=== PATIENT | female | born 1960 | race Caucasian/White ===

== ENCOUNTER 2019-04-09 12:26 | Inpatient (IN) | payer MEDICAID ==
[~2019-04-09] VITALS: Ht 167.6 cm; Wt 64.4 kg
[2019-04-09] VITALS (7 sets, daily range): BP systolic 153–185; BP diastolic 89–112; BMI 22.9
[2019-04-09 13:08] LABS: HEMATOCRIT 38.8 % (36.0-48.0); HEMOGLOBIN 13.1 g/dL (12-16); LYMPHOCYTES 24.8 % (15-50); MCH 31.6 pg (26.0-34.0); MCHC 33.8 g/dL (31.0-37.0); MCV 93.7 fL (80.0-100.0); MEAN PLATELET VOLUME 11.5 fL (7.4-10.4); NEUTROPHILS 70.3 % (40-80); PLATELET COUNT 184 10x3/uL (130-400); RBC 4.14 10x6/uL (4.00-5.40); RDW 15.4 % (11.5-14.5); WBC 9.7 10x3/uL (4.8-10.8)
[2019-04-09 13:18] LABS: ALKALINE PHOSPHATASE 106 U/L (46-116); ALT (SGPT) 46 U/L (10-68); BILIRUBIN - TOTAL 0.83 mg/dL (0.2-1.3); CALC OSMOLALITY 287 mosm/kg (275-300); CALCIUM 8.4 mg/dL (8.5-10.1); CARBON DIOXIDE 28.3 mmol/L (21.0-32.0); CHLORIDE - SERUM 105 mmol/L (98-107); CREATININE - SERUM 1.1 mg/dL (0.6-1.3); GLUCOSE 95 mg/dL (74-106); POTASSIUM - SERUM 3.6 mmol/L (3.5-5.1); PROTEIN - SERUM 6.6 g/dL (6.4-8.2); SODIUM 143 mmol/L (136-145); UREA NITROGEN 20 mg/dL (7-18); eGFR NON AFRICAN AMERICAN 54 mL/min (90-120)
[2019-04-09 13:30] LABS: CKMB 2.3 U/L (0.0-3.6); CREATINE KINASE 75 UL (21-215); PRO BNP 16407 pg/mL (0-125); TROPONIN-I 0.021 ng/mL (0.000-0.060)
[2019-04-09] MEDS ORDERED: ALBUTEROL SULF8.5 GM INH (15:24)
[2019-04-09 17:23] LABS: CKMB 2.4 U/L (0.0-3.6); CREATINE KINASE 70 UL (21-215); TROPONIN-I 0.024 ng/mL (0.000-0.060)
[2019-04-09 17:45] LABS: APTT 29.2 SECONDS (22.8-39.4); INR 1.15 (0.85-1.17); PROTIME 14.2 SECONDS (11.6-15.0)
--- NOTE | 2019-04-09 17:59 | NUR ---
NICOTEIN PATCH PLACED ON L UPPER ARM
--- NOTE | 2019-04-09 18:00 | NUR ---
[facility] STOP TIME 1800
--- NOTE | 2019-04-09 18:59 | MORECARE ---
CASE MANAGEMENT DISCHARGE SUMMARY PATIENT: GERMAIN ONTIVEROS UNIT: [id number] ADM DATE: 04/09/19 AGE: 59 : 64 SEX: F ROOM/BED: D.1209 AUTHOR: ERVIN SANCHEZ PHYSICIAN: REFERRING PHYSICIAN: MAVERICK JULIAN MD DATE OF SERVICE: 04/09/19 Discharge Plan Patient Name: GERMAIN ONTIVEROS Facility: [facility]:[place] : 1960 Planned Disposition: Home Anticipated Discharge Date: 04/11/19 Discharge Date: Expected LOS: 2 Initial Reviewer: [email or web address] Initial Review Date: 04/09/2019 Generated: 04/09/19 7:59 pm DCP- Discharge Planning Updated by [email or web address]: Stephanie Carbajal on 04/09/19 5:[address] DC PLAN: Return home alone independently. ANTICIPATED DC NEEDS: Unknown needs at time of assessment. CM met with patient to complete initial dc planning assessment. CM educated patient on the CM role and verbal consent given by patient to complete assessment. CM verified patient's address, phone number, and emergency contact phone numbers. Patient lives at home alone independently. At discharge patient plans to return home and feels this is a safe discharge. CM discussed availability of home health, rehab services, and medical equipment. Patient denied known discharge needs at this time. CM will continue to follow and will assist as needed with dc plans/needs. Stephanie Carbajal RN, [facility] DCPIA - Discharge Planning Initial Assessment Updated by [email or web address]: Stephanie Carbajal on 04/09/19 6:53 pm * Is the patient Alert and Oriented? Yes * PCP No PCP * Pharmacy [facility] * Preadmission Environment Home Alone * ADLs Independent * Equipment None * List name and contact numbers for known caregivers / representatives who currently or will assist patient after discharge: Liam Lynn - granddaughter - [phone] * Verbal permission to speak to the caregivers and representatives has been obtained from the patient. Yes * Community resources currently utilized None * Additional services required to return to the preadmission environment? No * Can the patient safely return to the preadmission environment? Yes * Has this patient been hospitalized within the prior 30 days at any hospital? No Patient Name: GERMAIN ONTIVEROS Page [phone] at 1859 All edits/amendments must be made on the electronic document DICTATION DATE: 04/09/191857 CERTIFIED HEARING INSTRUMENT DISPENSER: JAY 04/09/191857 RPT#: [id number] DC DATE: STATUS: ADM IN [facility] [address] [place] [address] END OF REPORT
--- NOTE | 2019-04-09 19:39 | NUR ---
REC'D PATIENT FROM ER. NO S/S OF DISTRESS. BROUGHT PATIENT A DRINK PER HER REQUEST AND ORDERS. PATIENT DENIES OTHER NEEDS AT THIS TIME. BED IN LOWEST POSITION AND CALL LIGHT WITHIN REACH. ENCOURAGED THE PATIENT TO CALL IF SHE HAS NEEDS. WILL CONTINUE TO MONITOR.
[2019-04-09 23:01] LABS: CKMB 1.6 U/L (0.0-3.6); CREATINE KINASE 61 UL (21-215); TROPONIN-I 0.036 ng/mL (0.000-0.060)
[2019-04-10] VITALS (7 sets, daily range): BP systolic 118–148; BP diastolic 62–86; BMI 22.9
[2019-04-10 00:12] LABS: APPEARANCE CLEAR (CLEAR); BILIRUBIN NEGATIVE (NEGATIVE); COLOR YELLOW (YELLOW); GLUCOSE NEGATIVE (NEGATIVE); KETONE NEGATIVE (NEGATIVE); NITRITE NEGATIVE (NEGATIVE); PROTEIN NEGATIVE (NEGATIVE); UROBILINOGEN NORMAL (NORMAL)
[2019-04-10 00:15] LABS: EPITHELIAL CELLS 0-5 /hpf (0-5); RED CELLS - URINE 0-5 /hpf (0-5); WHITE CELLS - URINE 0-5 /hpf (NEGATIVE)
[2019-04-10 00:16] LABS: BACTERIA NONE SEEN /hpf (NEGATIVE)
--- NOTE | 2019-04-10 07:10 | NUR ---
REPORT RECEIVED FROM PARTS CLASSIFIER AND PATIENT CARE ASSUMED. PATIENT SITTING UP IN BED WATCHING TV. PATIENT IS STABLE AND VSS. PATIENT DENIES ANY NEEDS OR PAIN. WILL CONTINUE WITH PLAN OF CARE. SR UP X 2 BED IN LOW POSITION AND CALL LIGHT IN REACH.
[2019-04-10 07:17] LABS: BASOPHILS 0.1 % (0-2); EOSINOPHILS 2.2 % (0-7); HEMATOCRIT 39.4 % (36.0-48.0); IMMATURE GRANULOCYTES 0.2 % (0-5); LYMPHOCYTES 25.4 % (15-50); MCH 30.6 pg (26.0-34.0); MCV 92.7 fL (80.0-100.0); MEAN PLATELET VOLUME 12.1 fL (7.4-10.4); MONOCYTES 4.8 % (2-11); NEUTROPHILS 67.3 % (40-80); PLATELET COUNT 216 10x3/uL (130-400); RBC 4.25 10x6/uL (4.00-5.40); RDW 15.2 % (11.5-14.5); WBC 8.8 10x3/uL (4.8-10.8)
[2019-04-10 07:42] LABS: ALKALINE PHOSPHATASE 97 U/L (46-116); ALT (SGPT) 38 U/L (10-68); BILIRUBIN - TOTAL 0.86 mg/dL (0.2-1.3); CALC OSMOLALITY 286 mosm/kg (275-300); CALCIUM 8.8 mg/dL (8.5-10.1); CARBON DIOXIDE 31.2 mmol/L (21.0-32.0); CHLORIDE - SERUM 104 mmol/L (98-107); CKMB 1.4 U/L (0.0-3.6); CREATINE KINASE 50 UL (21-215); CREATININE - SERUM 1.1 mg/dL (0.6-1.3); GLUCOSE 89 mg/dL (74-106); MAGNESIUM - SERUM 1.8 mg/dL (1.8-2.4); PROTEIN - SERUM 6.4 g/dL (6.4-8.2); SODIUM 144 mmol/L (136-145); TROPONIN-I 0.044 ng/mL (0.000-0.060); UREA NITROGEN 16 mg/dL (7-18); eGFR NON AFRICAN AMERICAN 54 mL/min (90-120)
--- NOTE | 2019-04-10 10:44 | NUR ---
PATIENT SITTING UP IN BED TALKING ON TELEPHONE. PATIENT IS STABLE AND VSS. PATIENT DENIES ANY NEEDS OR PAIN. PATIENT UP TO SHOWER. WILL CONTINUE WITH PLAN OF CARE. SR UP X 2 BED IN LOW POSITION AND CALL LIGHT IN REACH.
--- NOTE | 2019-04-10 10:47 | NUR ---
DR GABRIELA ARMSTRONG.
--- NOTE | 2019-04-10 16:29 | NUR ---
PATIENT RESTING COMFORTABLY TALKING ON CELL PHONE. PATIENT DENIES ANY NEEDS OR PAIN. PATIENT IS STABLE AND VSS. WILL CONTINUE TO MONITOR. SR UP X 2 BED IN LOW POSITION AND CALL LIGHT IN REACH.
--- NOTE | 2019-04-10 23:01 | NUR ---
EVENING ROUNDS COMPLETED. VSS, AAOX3, NO S/S OF DISTRESS. FAMILY AT BEDSIDE. PT STATES SHE IS FEELING A LOT BETTER THIS EVENING. DENIES ANY FURTHER NEEDS FOR COMFORT CARE. WILL CTM.
[2019-04-11 04:18] VITALS: BP 157/91
--- NOTE | 2019-04-11 04:35 | NUR ---
PT PIV INFILTRATED. RESITED ANOTHER PIV ON LFA 22G X1 STICK. PT TOLERATE WELL. LASIX GIVEN AT THIS TIME. PT DENIES ANY FURTHER NEEDS AT THIS TIME, WILL CPOC.
[2019-04-11 06:52] LABS: BASOPHILS 0 % (0-2); EOSINOPHILS 3.4 % (0-7); HEMOGLOBIN 13.3 g/dL (12-16); IMMATURE GRANULOCYTES 0.1 % (0-5); LYMPHOCYTES 26.8 % (15-50); MCH 30.7 pg (26.0-34.0); MCHC 32.4 g/dL (31.0-37.0); MEAN PLATELET VOLUME 12.3 fL (7.4-10.4); MONOCYTES 8.1 % (2-11); NEUTROPHILS 61.6 % (40-80); PLATELET COUNT 245 10x3/uL (130-400); RBC 4.33 10x6/uL (4.00-5.40); RDW 15.4 % (11.5-14.5); WBC 9.8 10x3/uL (4.8-10.8)
[2019-04-11 07:03] LABS: MCV 94.7 fL (80.0-100.0)
[2019-04-11 07:12] LABS: ALBUMIN 3.3 g/dL (3.4-5.0); ANION GAP 11.8 mmol/L (8-16); BILIRUBIN - TOTAL 0.62 mg/dL (0.2-1.3); CALCIUM 8.9 mg/dL (8.5-10.1); CARBON DIOXIDE 30.7 mmol/L (21.0-32.0); MAGNESIUM - SERUM 1.9 mg/dL (1.8-2.4); POTASSIUM - SERUM 3.5 mmol/L (3.5-5.1); PROTEIN - SERUM 7.1 g/dL (6.4-8.2)
--- NOTE | 2019-04-11 08:30 | NUR ---
PATIENT RECEIVED LYING IN BED. DENIES ANY PAIN OR NEEDS. AWAKE, ALERT, AND ORIENTED X 3. IV LEFT FA 22G SALINE LOCKED AND PATENT. TELEMETRY SR AT 77/MIN. SIDERAILS UP X 2. BED LOW AND LOCKED. WILL CONTINUE TO MONITOR.
[2019-04-11 10:47] LABS: CKMB 1.1 U/L (0.0-3.6); CREATINE KINASE 41 UL (21-215)
[2019-04-11 16:21] LABS: CKMB 1.1 U/L (0.0-3.6); CREATINE KINASE 45 UL (21-215)
[2019-04-11 16:43] LABS: TROPONIN-I < 0.017 ng/mL (0.000-0.060)
[2019-04-11 19:58] VITALS: BP 152/77
--- NOTE | 2019-04-11 20:00 | NUR ---
PT SITTING UP IN BED. CL IN REACH. WANTING TO GO TO VENDING MACHINE. THIS NURSE OKAYD FOR PT TO WALK DOWN TO VENDING MACHINE. DENIES NEEDS. RESP EVEN AND UNLABORED. A/O X4. LUNGS CLEAR. BOWEL ACTIVE X4. WCTM
[2019-04-11 22:20] LABS: CKMB 0.7 U/L (0.0-3.6); CREATINE KINASE 48 UL (21-215); TROPONIN-I < 0.017 ng/mL (0.000-0.060)
--- NOTE | 2019-04-11 23:00 | NUR ---
PT RECIEVED SHOWER.
[2019-04-11 23:52] VITALS: BP 138/68
--- NOTE | 2019-04-12 00:30 | NUR ---
PT RESTING QUIETLY. CL IN REACH. NO DISTRESS NOTED. WCTM
[2019-04-12 04:00] VITALS: BP 142/82
--- NOTE | 2019-04-12 04:17 | NUR ---
I have reviewed this patient and I concur with the Shift Assessment completed by the Licensed Practical Nurse today this shift.
[2019-04-12 05:53] LABS: BASOPHILS 0 % (0-2); EOSINOPHILS 4.8 % (0-7); HEMATOCRIT 40.6 % (36.0-48.0); IMMATURE GRANULOCYTES 0.2 % (0-5); LYMPHOCYTES 24.1 % (15-50); MCH 30.9 pg (26.0-34.0); MCV 96.4 fL (80.0-100.0); MEAN PLATELET VOLUME 11.7 fL (7.4-10.4); MONOCYTES 7.8 % (2-11); NEUTROPHILS 63.1 % (40-80); PLATELET COUNT 228 10x3/uL (130-400); RBC 4.21 10x6/uL (4.00-5.40); RDW 15.6 % (11.5-14.5); WBC 8.1 10x3/uL (4.8-10.8)
[2019-04-12 06:20] LABS: ALBUMIN 2.9 g/dL (3.4-5.0); BILIRUBIN - TOTAL 0.55 mg/dL (0.2-1.3); CALCIUM 8.8 mg/dL (8.5-10.1); CARBON DIOXIDE 33.2 mmol/L (21.0-32.0); CREATININE - SERUM 1.2 mg/dL (0.6-1.3); MAGNESIUM - SERUM 2.1 mg/dL (1.8-2.4); PROTEIN - SERUM 6.6 g/dL (6.4-8.2)
[2019-04-12 06:21] LABS: ANION GAP 8.9 mmol/L (8-16); POTASSIUM - SERUM 4.1 mmol/L (3.5-5.1)
--- NOTE | 2019-04-12 07:15 | NUR ---
PT RESTING IN BED, SHIFT ASSESSMENT PERFORMED. DENIES ANY NEEDS AT THIS TIME. WILL CONT TO FOLLOW POC
[2019-04-12 08:00] VITALS: BP 138/66
[2019-04-12 11:46] VITALS: Ht 167.6 cm; Wt 64.4 kg
--- NOTE | 2019-04-12 12:20 | NUR ---
PT RESTING IN BED EATING LUNCH. DENIES ANY NEEDS AT THIS TIME, WILL CONT TO FOLLOW POC
[2019-04-12] MEDS ORDERED: LEVAQUIN750 MG PO (12:32)
[2019-04-12] MEDS ORDERED: CARDIZEM LA300 MG PO (12:32)
--- NOTE | 2019-04-12 13:05 | NUR ---
NUTRITION F//U CHART REVIEWED, PT VISIT. GOOD INTAKE RECENT MEALS. PT STATES SHE IS "PROBABLY EATING TOO MUCH." WILL CONTINUE TO MONITOR PO INTAKE, PT PROGRESS. RD FOLLOWING
--- NOTE | 2019-04-12 16:00 | NUR ---
DISCHARGE INSTRUCTIONS REVIEWED WITH PT AND ALL QUESTIONS ANSWERED. PIV REMOVED WITH CATHETER TIP INTACT. TELEMETRY TAKEN TO MANAGER PRIMARY CARE, JAN. ASSISTED PT TO FRONT OF HOSPITAL.
--- NOTE | 2019-04-12 17:07 | MORECARE ---
CASE MANAGEMENT DISCHARGE SUMMARY PATIENT: GERMAIN ONTIVEROS UNIT: [id number] ADM DATE: 04/09/19 AGE: 59 : 64 SEX: F ROOM/BED: D.1209 AUTHOR: ERVIN SANCHEZ PHYSICIAN: REFERRING PHYSICIAN: MAVERICK JULIAN MD DATE OF SERVICE: 04/12/19 Discharge Plan Patient Name: GERMAIN ONTIVEROS Facility: [facility]:[place] : 1960 Planned Disposition: Home Anticipated Discharge Date: 04/11/19 Discharge Date: 04/12/2019 Expected LOS: 2 Initial Reviewer: [email or web address] Initial Review Date: 04/09/2019 Generated: 04/12/19 6:07 pm DCP- Discharge Planning Updated by [email or web address]: Stephanie Carbajal on 04/09/19 5:[address] DC PLAN: Return home alone independently. ANTICIPATED DC NEEDS: Unknown needs at time of assessment. CM met with patient to complete initial dc planning assessment. CM educated patient on the CM role and verbal consent given by patient to complete assessment. CM verified patient's address, phone number, and emergency contact phone numbers. Patient lives at home alone independently. At discharge patient plans to return home and feels this is a safe discharge. CM discussed availability of home health, rehab services, and medical equipment. Patient denied known discharge needs at this time. CM will continue to follow and will assist as needed with dc plans/needs. Stephanie Carbajal RN, [facility] DCPIA - Discharge Planning Initial Assessment Updated by [email or web address]: Stephanie Carbajal on 04/09/19 6:53 pm * Is the patient Alert and Oriented? Yes * PCP No PCP * Pharmacy [facility] * Preadmission Environment Home Alone * ADLs Independent * Equipment None * List name and contact numbers for known caregivers / representatives who currently or will assist patient after discharge: Liam Lynn - granddaughter - [phone] * Verbal permission to speak to the caregivers and representatives has been obtained from the patient. Yes * Community resources currently utilized None * Additional services required to return to the preadmission environment? No * Can the patient safely return to the preadmission environment? Yes * Has this patient been hospitalized within the prior 30 days at any hospital? No Last DP export: 04/09/19 5:59 Patient Name: GERMAIN ONTIVEROS Page [phone] at 1707 All edits/amendments must be made on the electronic document DICTATION DATE: 04/12/191706 MACHINE CAPTAIN: JAY 04/12/191706 RPT#: [id number] DC DATE:04/12/19 STATUS: DIS IN [facility] [address] [place] [address] END OF REPORT
--- NOTE | 2019-04-13 13:28 | EC ---
PATIENT:GERMAIN ONTIVEROS DATE OF SERVICE: 04/09/19 SEX: F MEDICAL RECORD: [id number] DATE OF : 64 [facility] AGE OF PATIENT: 59 ADMISSION DATE: 04/09/19 REFERRING PHYSICIAN: INTERPRETING PHYSICIAN: LIBRADO GUERRERO MD ECHOCARDIOGRAM REPORT ECHO CHARGES 4 ECHO COMPLETE Date: 04/10/19 CLINICAL DIAGNOSIS: CHF ECHOCARDIOGRAPHIC MEASUREMENTS (adult normal given) AC root (d.<3.7cm) 3.1 cm LV Septum d (<1.2 cm> 1.6 cm Valve Excursion 1.3 cm LV Septum (systole) 1.4 cm Left Atria (s.<4.0cm> 4.8 cm LVPW d(<1.2cm) 1.5 cm RV (d.<2.3cm) 4.1 cm LVPW (sytole) 1.8 cm LV diastole(<5.6CM) 4.9 cm MV E-F(>70mm/sec) cm LV systole 3.5 cm LVOT Diameter 1.6 cm MV exc.(>10mm) 1.3 cm Est.ejection fraction (50-75%) % DOPPLER: LVIT cm/sec A 78.0 cm/sec E 108 cm/sec LA cm/sec RVSP 51 mmHg LVOT 132 cm/sec AOP1/2T m/s Asc. Ao 194 cm/sec RVOT 89 cm/sec RA cm/sec PA 163 cm/sec AV Gradient Peak 15.05mmHg AV Mean 8.42 mmHg AV Area 1.4 cm MV Gradient Peak 6.81 mmHg MV Mean 2.70 mmHg MV Area cm COMMENTS: Package Liner: Eloise MANTILLA Material Damage Adjuster: 1 Dr. Guerrero TAPE# PACS Pericardial Effusion N DATE OF SERVICE: FINDINGS: 1. Left ventricular chamber size is within normal limits. Left ventricular systolic function is normal. Overall ejection fraction estimated at 50%. 2. Left atrium is enlarged at 4.8 cm. Right atrium and right ventricular chamber sizes are as well mildly dilated. 3. Valvular structures have normal structure and motion. 4. Doppler interrogation reveals moderate mitral regurgitation, moderate tricuspid regurgitation, no other valvular insufficiency or stenosis. Pulmonary ECHOCARDIOGRAM REPORT [id number] GERMAIN ONTIVEROS systolic pressure is elevated estimated at 51 mmHg. 5. No evidence of pericardial effusion or left ventricular thrombus. TRANSINT:[id number] Voice Confirmation ID: [id number] DOCUMENT ID: [id number] LIBRADO GUERRERO MD at 1328 CC: [id number] DICTATION DATE: 04/10/19 1239 WAN SUPPORT SPECIALIST: 04/10/19 1253 DIS IN 04/12/19 [place] [id number] [place] [id number]
--- NOTE | 2019-04-13 13:29 | CN ---
PATIENT NAME:GERMAIN ONTIVEROS MEDICAL RECORD: [id number] : 64 LOCATION:D.M3 D.1209 ADMIT DATE: 04/09/19 ACCOUNT: [id number] CONSULTING PHYSICIAN: LIBRADO MANN MD REFERRING PHYSICIAN: MAVERICK JULIAN MD DATE OF CONSULTATION: 04/12/2019 DIAGNOSES: 1. Shortness of breath, dyspnea on exertion. 2. Pneumonia. 3. Pulmonary hypertension. 4. Valvular heart disease, mitral regurgitation. 5. Smoking. 6. Chronic obstructive pulmonary disease. 7. Abnormal ECG, left bundle branch block. HISTORY OF PRESENT ILLNESS: Mrs. Ontiveros has no previous cardiac history. She presents with shortness of breath, dyspnea on exertion. No chest pain. Cough is productive of sputum. She has been treated for the pneumonia and an echocardiogram was obtained. She has pulmonary hypertension, pulmonary systolic pressure 50 and mitral regurgitation that is moderate. She was placed on diltiazem 180 mg every day. Her systolic blood pressure still in the 140 range. PHYSICAL EXAMINATION: CONSTITUTIONAL/GENERAL APPEARANCE: Well nourished, well developed, appears stated age. EYES: Lids and conjunctivae noninjected. No discharge. No pallor. ENT: Lips within normal limit. No cyanosis. No pallor. NECK: Carotid arteries, bilateral normal upstroke. No bruits. No thrills. No jugular venous pressure or distention. CERVICAL LYMPH NODES: Nontender. Nonenlarged. THYROID: Not enlarged. No nodules. CARDIOVASCULAR: Precordial exam, nondisplaced. No heaves or pericardial thrills. Rate and rhythm, regular. Heart sounds, normal S1, normal S2. No S3, no gallop, no rub. Systolic murmur, not heard. Diastolic murmur, not heard. RESPIRATORY: Respiratory effort, unlabored. Normal curvature. No thoracic deformity. No chest wall tenderness. Percussion, resonant. Auscultation, clear. No wheezes, no rales, no rhonchi. ABDOMEN: Soft, nondistended, nontender. No abdominal pain, no vomiting and normal appetite. MUSCULOSKELETAL: No joint tenderness, normal gait, normal tone. SKIN: Warm and dry. OVERALL IMPRESSION: Pulmonary hypertension in conjunction with mitral regurgitation. At this time, afterload reduction will be the mainstay of therapy. We will increase her diltiazem to 300 mg every day. We will see her back in a month. If her blood pressure is still elevated, we will consider adding an PATRICIA inhibitor or ARB for further afterload reduction. TRANSINT:[id number] Voice Confirmation ID: [id number] DOCUMENT ID: [id number] CONSULT REPORT [id number] GERMAIN ONTIVEROS JEFFREY MD at 1329 CC: [id number] DICTATION DATE: 04/12/19 1149 AIRPORT OPERATIONS COORDINATOR: 04/12/19 1159 DIS IN 04/12/19 [place] [address] [place] [address]
== END 2019-04-12 16:36 | disposition home or self-care (01) | DRG 291 ==
LOC: D.ER 12:26 → D.M3 16:20
PROVIDERS: Emergency Medicine; ADMIT Family Medicine; ATTEND Family Medicine
DX: I11.0 Hypertensive heart disease with heart failure (principal); J18.9 Pneumonia, unspecified organism; I50.31 Acute diastolic (congestive) heart failure; J44.0 Chronic obstructive pulmonary disease with (acute) lower respiratory infection; F17.213 Nicotine dependence, cigarettes, with withdrawal; I16.9 Hypertensive crisis, unspecified; J20.9 Acute bronchitis, unspecified; I27.20 Pulmonary hypertension, unspecified; I34.0 Nonrheumatic mitral (valve) insufficiency; R94.30 Abnormal result of cardiovascular function study, unspecified

== ENCOUNTER 2019-04-23 01:00 | Inpatient (IN) | payer MEDICAID ==
[~2019-04-23] VITALS: Ht 167.6 cm; Wt 63.4 kg
[2019-04-23] VITALS (32 sets, daily range): BP systolic 95–195; BP diastolic 45–101; BMI 22.9
[~2019-04-23 01:00] MED LIST: ALBUTEROL SULF8.5 GM INH; CARDIZEM LA300 MG PO; LEVAQUIN750 MG PO
--- NOTE | 2019-04-23 01:08 | NUR ---
PT PLACED ON 6L O2 VIA NC. PT O2 SAT IN THE 70S ON RA AT ARRIVAL.
--- NOTE | 2019-04-23 01:15 | NUR ---
PT MOVED TO TRAUMA ROOM 2 D/T PT CONDITION. RT, RN, AND EDP JESSIE AT BEDSIDE.
[2019-04-23 01:33] LABS: BASOPHILS 0.1 % (0-2); EOSINOPHILS 3.5 % (0-7); HEMATOCRIT 41.6 % (36.0-48.0); HEMOGLOBIN 13.4 g/dL (12-16); IMMATURE GRANULOCYTES 0.3 % (0-5); LYMPHOCYTES 28.9 % (15-50); MCH 30.7 pg (26.0-34.0); MCHC 32.2 g/dL (31.0-37.0); MCV 95.4 fL (80.0-100.0); MEAN PLATELET VOLUME 11.3 fL (7.4-10.4); MONOCYTES 4.9 % (2-11); NEUTROPHILS 62.3 % (40-80); RBC 4.36 10x6/uL (4.00-5.40); RDW 14.7 % (11.5-14.5); WBC 13.6 10x3/uL (4.8-10.8)
[2019-04-23 01:34] LABS: PLATELET COUNT 287 10x3/uL (130-400)
[2019-04-23 01:49] LABS: CALC OSMOLALITY 287 mosm/kg (275-300); CALCIUM 8.5 mg/dL (8.5-10.1); CARBON DIOXIDE 24.7 mmol/L (21.0-32.0); CHLORIDE - SERUM 101 mmol/L (98-107); CREATININE - SERUM 1.6 mg/dL (0.6-1.3); SODIUM 137 mmol/L (136-145); UREA NITROGEN 25 mg/dL (7-18); eGFR NON AFRICAN AMERICAN 35 mL/min (90-120)
[2019-04-23 01:50] LABS: GLUCOSE 270 mg/dL (74-106)
[2019-04-23 01:52] LABS: APTT 27.6 SECONDS (22.8-39.4); INR 1.07 (0.85-1.17); PROTIME 13.4 SECONDS (11.6-15.0)
[2019-04-23 02:01] LABS: D-DIMER-QUANTITATIVE 3.57 ug/mLFEU (0.20-0.54)
[2019-04-23 02:12] LABS: ALBUMIN 3.2 g/dL (3.4-5.0); ALKALINE PHOSPHATASE 139 U/L (46-116); ALT (SGPT) 51 U/L (10-68); BILIRUBIN - TOTAL 0.41 mg/dL (0.2-1.3); CKMB 1.1 U/L (0.0-3.6); CREATINE KINASE 65 UL (21-215); PRO BNP 3379 pg/mL (0-125); PROTEIN - SERUM 7.8 g/dL (6.4-8.2)
[2019-04-23 02:13] LABS: TROPONIN-I < 0.017 ng/mL (0.000-0.060)
--- NOTE | 2019-04-23 03:00 | NUR ---
PT FAMILY AT BEDSIDE. FAMILY UPDATED ON POC. PT RESTING ON BED.
--- NOTE | 2019-04-23 04:35 | NUR ---
Received patient from ER via stretcher sedated on vent, assessment completed per flowsheet. ETT 7.5 @ 22cm secured. S1/S2 noted NSR on telemetry, rythmic and regular. Vent settings AC R-24 V-500 70% P-7.5 with O2 sat 100%, lung sounds clear bilateral upper with diminished mid and lower. Abdomen is flat/soft with bowel sounds active x4, non-tender. Weber secured, clear yellow urine noted. All pulses palpable with slight weakness noted all, skin warm/dry with cap refill < 3 sec. Oral care/suctioning provided, positioned for comfort. Unable to perform Suicide screen at this time, daughter at bedside for history. No further needs at this time, see flowsheet for details. All VSS and will continue to monitor.
--- NOTE | 2019-04-23 06:15 | NUR ---
Dr Guo paged to notify of consult, awaiting return call.
[2019-04-23 06:28] LABS: BASOPHILS 0 % (0-2); EOSINOPHILS 0.1 % (0-7); HEMATOCRIT 36.3 % (36.0-48.0); HEMOGLOBIN 11.7 g/dL (12-16); IMMATURE GRANULOCYTES 0.2 % (0-5); LYMPHOCYTES 5.2 % (15-50); MCH 30.5 pg (26.0-34.0); MCHC 32.2 g/dL (31.0-37.0); MCV 94.5 fL (80.0-100.0); MEAN PLATELET VOLUME 11.3 fL (7.4-10.4); MONOCYTES 3.4 % (2-11); NEUTROPHILS 91.1 % (40-80); RBC 3.84 10x6/uL (4.00-5.40); RDW 14.8 % (11.5-14.5); WBC 13.7 10x3/uL (4.8-10.8)
[2019-04-23 06:34] LABS: PLATELET COUNT 211 10x3/uL (130-400)
--- NOTE | 2019-04-23 07:18 | NUR ---
REPORT RECEIVED. ASSESSMENT COMPLETE PER FLOW SHEET. VSS. PT RESTING COMFORTABLY WILL CONTINUE TO MONITOR
[2019-04-23 08:08] LABS: CKMB 1.8 U/L (0.0-3.6); CREATINE KINASE 70 UL (21-215); TROPONIN-I 0.022 ng/mL (0.000-0.060)
--- NOTE | 2019-04-23 09:10 | NUR ---
DR CUNNINGHAM AND DR NOYOLA AT BEDSIDE GIVEN UPDATE
--- NOTE | 2019-04-23 11:00 | NUR ---
REASSESSMENT COMPLETE PER FLOW SHEET. VSS. NO NEW CHANGES PT RESTING COMFORTABLY WILL CONTINUE TO MONITOR
--- NOTE | 2019-04-23 12:07 | NUR ---
FAMILY CALLED GIVEN BETH
--- NOTE | 2019-04-23 12:16 | MORECARE ---
CASE MANAGEMENT DISCHARGE SUMMARY PATIENT: GERMAIN ONTIVEROS UNIT: [id number] ADM DATE: 04/23/19 AGE: 59 : 64 SEX: F ROOM/BED: D.2308 AUTHOR: ERVIN SANCHEZ PHYSICIAN: REFERRING PHYSICIAN: NATIVIDAD PIÑA DO DATE OF SERVICE: 04/23/19 Discharge Plan Patient Name: GERMAIN ONTIVEROS Facility: [facility]:[place] : 1960 Planned Disposition: Anticipated Discharge Date: Discharge Date: Expected LOS: Initial Reviewer: [email or web address] Initial Review Date: 04/23/2019 Generated: 04/23/19 1:16 pm Patient Name: GERMAIN ONTIVEROS Page [phone] at 1216 All edits/amendments must be made on the electronic document DICTATION DATE: 04/23/19 1216 QC SCIENTIST: JAY 04/23/19 1216 RPT#: [id number] DC DATE: STATUS: ADM IN [facility] [address] [place] [address] END OF REPORT
--- NOTE | 2019-04-23 12:26 | MORECARE ---
CASE MANAGEMENT DISCHARGE SUMMARY PATIENT: GERMAIN ONTIVEROS UNIT: [id number] ADM DATE: 04/23/19 AGE: 59 : 64 SEX: F ROOM/BED: D.2308 AUTHOR: ERVIN SANCHEZ PHYSICIAN: REFERRING PHYSICIAN: NATIVIDAD PIÑA DO DATE OF SERVICE: 04/23/19 Discharge Plan Patient Name: GERMAIN ONTIVEROS Facility: [facility]:[place] : 1960 Planned Disposition: Anticipated Discharge Date: Discharge Date: Expected LOS: Initial Reviewer: [email or web address] Initial Review Date: 04/23/2019 Generated: 04/23/19 1:26 pm Comments DCP- Discharge Planning Updated by [email or web address]: Colleen Bella on 04/23/19 11:[address] CM attempted to visit with patient regarding discharge planning/ needs. Patient currently on vent no family available. Patient is a readmission was recently discharged 04/12/19 CM will continue to follow and assist as needed with discharge planning / needs Last DP export: 04/23/19 11:16 Patient Name: GERMAIN ONTIVEROS Page [phone] at 1226 All edits/amendments must be made on the electronic document DICTATION DATE: 04/23/19 1225 SENIOR IT ARCHITECT: JAY 04/23/19 1225 RPT#: [id number] DC DATE: STATUS: ADM IN [facility] [address] [place] [address] END OF REPORT
[2019-04-23 12:42] LABS: CKMB 1.6 U/L (0.0-3.6); CREATINE KINASE 62 UL (21-215)
[2019-04-23 12:44] LABS: TROPONIN-I < 0.017 ng/mL (0.000-0.060)
--- NOTE | 2019-04-23 13:10 | NUR ---
FAMILY AT BEDSIDE GIVEN UDPATE. NO NEW CHANGES WILL CONTINUE TO MONITOR
--- NOTE | 2019-04-23 15:15 | NUR ---
REPOSITIONED FOR COMFORT, ORAL CARE PROVIDED
--- NOTE | 2019-04-23 17:10 | NUR ---
FAMILY AT BEDSIDE, UPDATE GIVEN, WILL CON'T TO MONITOR
[2019-04-23 20:09] LABS: CKMB 0.8 U/L (0.0-3.6); CREATINE KINASE 49 UL (21-215)
[2019-04-23 20:17] LABS: TROPONIN-I < 0.017 ng/mL (0.000-0.060)
[2019-04-24] VITALS (27 sets, daily range): BP systolic 126–178; BP diastolic 63–105; BMI 22.9
[2019-04-24 04:46] LABS: BASOPHILS 0 % (0-2); EOSINOPHILS 0 % (0-7); HEMOGLOBIN 11.8 g/dL (12-16); IMMATURE GRANULOCYTES 0.2 % (0-5); LYMPHOCYTES 5.2 % (15-50); MCH 30.2 pg (26.0-34.0); MCHC 32.8 g/dL (31.0-37.0); MEAN PLATELET VOLUME 11.6 fL (7.4-10.4); MONOCYTES 1.9 % (2-11); NEUTROPHILS 92.7 % (40-80); RBC 3.91 10x6/uL (4.00-5.40); RDW 14.9 % (11.5-14.5); WBC 15.1 10x3/uL (4.8-10.8)
[2019-04-24 05:00] LABS: MCV 92.1 fL (80.0-100.0); PLATELET COUNT 261 10x3/uL (130-400)
[2019-04-24 05:08] LABS: ANION GAP 13.3 mmol/L (8-16); CALCIUM 8.5 mg/dL (8.5-10.1); CARBON DIOXIDE 25.8 mmol/L (21.0-32.0); MAGNESIUM - SERUM 2.1 mg/dL (1.8-2.4); PHOSPHOROUS 4.3 mg/dL (2.5-4.9); POTASSIUM - SERUM 4.1 mmol/L (3.5-5.1)
--- NOTE | 2019-04-24 06:00 | NUR ---
VS STABLE. NO VISUAL CUES OF DISTRESS NOTED. WILL CONTINUE TO MONITOR.
--- NOTE | 2019-04-24 07:15 | NUR ---
REPORT RECIEVED FROM ECKLEY. ROOM CLEAN. HOB 30. SEDATED. NO PURPOSFUL MOVEMENTS. 75 MCG OF PROPOFOL. WILL BEGIN TO WEAN PER PROTOCOL. COTTRELL. VENT. NO ACUTE DISTRESS. PULSES PALP. PERRL. BREATH SOUNDS CRACKLES BILAT. BOWEL SOUNDS HYPO ACTIVE. NO FEEDING SUPPLEMENTAION AT THIS TIME. NO BM. CAP REFILL LESS THAN 3 SEC. WILL CONITNUE TO MONITOR.
--- NOTE | 2019-04-24 09:30 | NUR ---
CALLED DR CUNNINGHAM FOR APRESOLINE PRN.
--- NOTE | 2019-04-24 11:07 | NUR ---
DR NOYOLA AT BEDSIDE
--- NOTE | 2019-04-24 11:15 | NUR ---
patient had a low grade fever. ice packs applied. blankets off and air in room turned down.
--- NOTE | 2019-04-24 11:41 | EC ---
PATIENT:GERMAIN ONTIVEROS DATE OF SERVICE: 04/23/19 SEX: F MEDICAL RECORD: [id number] DATE OF : 64 LOCATION:[facility] AGE OF PATIENT: 59 ADMISSION DATE: 04/23/19 REFERRING PHYSICIAN: INTERPRETING PHYSICIAN: LIBRADO GUERRERO MD ECHOCARDIOGRAM REPORT ECHO CHARGES 5 ECHO LIMITED Date: 04/23/19 CLINICAL DIAGNOSIS: CHF/ASSESS EF ECHOCARDIOGRAPHIC MEASUREMENTS (adult normal given) AC root (d.<3.7cm) cm LV Septum d (<1.2 cm> cm Valve Excursion cm LV Septum (systole) cm Left Atria (s.<4.0cm> 5.5 cm LVPW d(<1.2cm) cm RV (d.<2.3cm) 4.4 cm LVPW (sytole) cm LV diastole(<5.6CM) cm MV E-F(>70mm/sec) cm LV systole cm LVOT Diameter cm MV exc.(>10mm) cm Est.ejection fraction (50-75%) % DOPPLER: LVIT cm/sec A cm/sec E cm/sec LA cm/sec RVSP 27 mmHg LVOT cm/sec AOP1/2T m/s Asc. Ao cm/sec RVOT cm/sec RA cm/sec PA cm/sec AV Gradient Peak mmHg AV Mean mmHg AV Area cm MV Gradient Peak mmHg MV Mean mmHg MV Area cm COMMENTS: Haulage Engine Operator: Eloise MANTILLA Excavation Laborer: Yair Guerrero TAPE# PACS Pericardial Effusion N DATE OF SERVICE: PROCEDURE: Limited echo. FINDINGS: 1. Left ventricular chamber size is within normal limits. Left ventricular systolic function is normal. Overall ejection fraction estimated at 55%. 2. Left atrium, right atrium, and right ventricular chamber sizes are within normal limits. 3. Valvular structures have normal structure and motion. ECHOCARDIOGRAM REPORT [id number] GERMAIN ONTIVEROS 4. Doppler interrogation reveals mild mitral regurgitation, mild tricuspid regurgitation, no other valvular insufficiency or stenosis. 5. No evidence of pericardial effusion or left ventricular thrombus. TRANSINT:[id number] Voice Confirmation ID: [id number] DOCUMENT ID: [id number] LIBRADO GUERRERO MD at 1141 CC: [id number] DICTATION DATE: 04/23/19 1117 HOMEBOUND TEACHER: 04/23/19 1203 ADM IN [facility] [address] [id number]
--- NOTE | 2019-04-24 13:43 | NUR ---
DR NOYOLA PAGED SINCE PATIENT IS AWAKE.
--- NOTE | 2019-04-24 14:19 | NUR ---
orders given per dr tripp.
--- NOTE | 2019-04-24 17:00 | NUR ---
0700 RECIEVED REPORT. COMPLETED ASSESSMENT. LOW GRADE FEVER 0900 ADL'S DONE. SEE DOCUMENTATION. BLOOD PRESURE MEDICATION ORDERED. 1100 LOW GRADE FEVER. ICEPACKS. REASSESSMENT DONE. PATIEN TURNED. SEE ADL'S. TUBE FEEDING STARTED @ 20CC. 1300 SEDATION VACATION. FAMILY AT BEDSIDE. PATIENT FOLLOWS COMMANDS. 1500 AFEBRILE. REASSESSMENT DONE. NO CHANGES FROM THIS MORNING. SEDATION VACATION ENDED 1700 FAMILY AT BEDSIDE. PATIENT SEDATED. ABLE TO NOD YES NO. ORAL CARE. SEE ADL'S. NO DISTRESS. NEGATIVE DVT PER REPORT. NO BM. LUNGS CRACKLE BUT BETTER AFTER SUCTIONING AND BREATHING TREATMENT.
--- NOTE | 2019-04-24 19:00 | NUR ---
SHIFT ASSESSMENT COMPLETE. VS STABLE. NO VISUAL CUES OF DISTRESS NOTED. WILL CONTINUE TO MONITOR.
[2019-04-25] VITALS (35 sets, daily range): BP systolic 98–164; BP diastolic 45–98; Ht 167.6 cm; Wt 63.4 kg
[2019-04-25 04:31] LABS: BASOPHILS 0.1 % (0-2); EOSINOPHILS 0 % (0-7); HEMATOCRIT 38.6 % (36.0-48.0); HEMOGLOBIN 12.7 g/dL (12-16); IMMATURE GRANULOCYTES 0.5 % (0-5); LYMPHOCYTES 5.4 % (15-50); MCH 30.6 pg (26.0-34.0); MCHC 32.9 g/dL (31.0-37.0); MEAN PLATELET VOLUME 11.6 fL (7.4-10.4); MONOCYTES 3.7 % (2-11); NEUTROPHILS 90.3 % (40-80); PLATELET COUNT 263 10x3/uL (130-400); RBC 4.15 10x6/uL (4.00-5.40); RDW 15.5 % (11.5-14.5)
[2019-04-25 04:40] LABS: WBC 19.1 10x3/uL (4.8-10.8)
[2019-04-25 05:00] LABS: ALKALINE PHOSPHATASE 91 U/L (46-116); ALT (SGPT) 34 U/L (10-68); BILIRUBIN - TOTAL 0.57 mg/dL (0.2-1.3); CALC OSMOLALITY 292 mosm/kg (275-300); CALCIUM 8.4 mg/dL (8.5-10.1); CARBON DIOXIDE 29.2 mmol/L (21.0-32.0); CHLORIDE - SERUM 106 mmol/L (98-107); GLUCOSE 121 mg/dL (74-106); MAGNESIUM - SERUM 2.3 mg/dL (1.8-2.4); POTASSIUM - SERUM 3.7 mmol/L (3.5-5.1); PROTEIN - SERUM 7.1 g/dL (6.4-8.2); SODIUM 143 mmol/L (136-145); UREA NITROGEN 32 mg/dL (7-18); VANCOMYCIN - TROUGH 8.5 ug/mL (10.0-20.0)
[2019-04-25 05:10] LABS: CREATININE - SERUM 0.6 mg/dL (0.6-1.3); PHOSPHOROUS 3.2 mg/dL (2.5-4.9); eGFR NON AFRICAN AMERICAN > 90 mL/min (90-120)
--- NOTE | 2019-04-25 07:00 | NUR ---
REPORT RECIEVED FROM RENEE MONIQUE. PROPFOL LINE CHANGED AT THIS TIME. NO DISTRESS. PATIENT FOLLOWS COMMANDS. SEDATED. VENT. BED LOW AND LOCKED. CALL LIGHT WITHIN REACH. VSS. SEE ASSESSMENT. SEE ADL'S. WILL CONTINUE TO MONITOR
--- NOTE | 2019-04-25 09:47 | NUR ---
family at bedside. update given.
--- NOTE | 2019-04-25 11:00 | NUR ---
REASSESSMENT DONE. NO CHANGES FROM INITIAL ASSESSMENT. WILL CONTINUE TO MONITOR. BED LOW AND LOCKED. CALL [facility] WITHIN REACH. NO DISTRESS. DR NOYOLA AT BEDSIDE. ORDRE GIVEN. UPDATE GIVEN. TUBE FEEDING. RESIDUAL 50ML. WILL CONTINUE TO MONITOR.
--- NOTE | 2019-04-25 12:48 | NUR ---
PAGED DR ALBERTS FOR CHG CONSULT PER DR NOYOLA. DR ALBERTS STATED HE DID NOT NEED TO BE CALLED BUT WOULD SEND SOMEONE ELSE TO COME SEE PATIENT. VIA [employer]ET SAYS HES WINDOWS SOFTWARE ENGINEER AND CALLED THE OFFICE BEFORE CALLING HIM AND THEY CONFIRMED DR ALBERTS WAS WINDOWS SOFTWARE ENGINEER.
[2019-04-25 13:10] LABS: EHRLICHIA CHAFF IGG Negative (Neg:<1:64); EHRLICHIA CHAFF IGM Negative (Neg:<1:20); HGE IGG TITER Negative (Neg:<1:64); HGE IGM TITER Negative (Neg:<1:20)
--- NOTE | 2019-04-25 13:16 | NUR ---
Nutrition follow-up: Intubated, CPAP trials today Pulmocare started @ 20 ml/hr with 10 ml increasae q 12 hours to goal rate of 40 ml/hr per Dr. Casarez if pt remains intubated. Labs reviewed Wt: 139# RDN following.
--- NOTE | 2019-04-25 13:19 | NUR ---
FAMILY AT BEDSIDE. BRONCH PERFORMED PER DR NOYOLA. VSS. HOB 30. SEE ADL'S. WILL CONTINUE TO MONITOR
--- NOTE | 2019-04-25 15:00 | NUR ---
REASSESSMENT COMPLETE, NO CHANGES NOTED, PT REPOSITIONED FOR COMFORT, ORAL CARE PROVIDED
--- NOTE | 2019-04-25 17:00 | NUR ---
FAMILY AT BEDSIDE, UPDATE GIVEN
--- NOTE | 2019-04-25 19:00 | NUR ---
CHANGED PT TO CPAP 03/31.
--- NOTE | 2019-04-25 19:00 | NUR ---
BEDSIDE REPORT AND SHIFT ASSESSMENT COMPLETE, SEE FLOWSHEET. VSS, NO SIGNS OF ACUTE DISTRESS NOTED. PT SEDATED, FOLLOWS COMMANDS. R HAND PIV AND L AC PIV, PATENT, DRESSING CDI. MATTHIAS, RT AT BEDSIDE TO START CPAP TRIAL, WILL START WEANING SEDATIVE PER PROTOCOL. WILL CONTINUE TO MONITOR.
--- NOTE | 2019-04-25 20:29 | MORECARE ---
CASE MANAGEMENT DISCHARGE SUMMARY PATIENT: GERMAIN ONTIVEROS UNIT: [id number] ADM DATE: 04/23/19 AGE: 59 : 64 SEX: F ROOM/BED: D.2308 AUTHOR: ERVIN SANCHEZ PHYSICIAN: REFERRING PHYSICIAN: NATIVIDAD PIÑA DO DATE OF SERVICE: 04/25/19 Discharge Plan Patient Name: GERMAIN ONTIVEROS Facility: [facility]:[place] : 1960 Planned Disposition: Anticipated Discharge Date: Discharge Date: Expected LOS: Initial Reviewer: [email or web address] Initial Review Date: 04/23/2019 Generated: 04/25/19 9:29 pm Comments DCP- Discharge Planning Updated by [email or web address]: Colleen Bella on 04/25/19 7:[address] CM spoke with [employer] today and patient is still Medicaid pending. Awaiting income verification. CM attempted to get discharge planning assessment but patient is still on vent. CM was able to obtain some contact numbers and will attempt to contact them. CM will continue to follow and assist as needed with discharge planning / needs DCP- Discharge Planning Updated by [email or web address]: Colleen Bella on 04/23/19 11:[address] CM attempted to visit with patient regarding discharge planning/ needs. Patient currently on vent no family available. Patient is a readmission was recently discharged 04/12/19 CM will continue to follow and assist as needed with discharge planning / needs Last DP export: 04/23/19 11:26 Patient Name: GERMAIN ONTIVEROS Page [phone] at 2028 All edits/amendments must be made on the electronic document DICTATION DATE: 04/25/192028 MEAT SUPERVISOR: JAY 04/25/192028 RPT#: [id number] DC DATE: STATUS: ADM IN [facility] [address] [place] [address] END OF REPORT
--- NOTE | 2019-04-25 21:00 | NUR ---
MEDS GIVEN PER AUG. FAMILY AT BEDSIDE. DAUGHTER IS GIVING HER A BATH AND WASHING HER HAIR. TUBE FEEDING BAG CHANGED, 5 ML RESIDUAL. CPAP TRIAL COMPLETE, SEDATION RESTARTED PER AUG. WILL CONTINUE TO MONITOR.
--- NOTE | 2019-04-25 21:03 | NUR ---
AFTER 2 HRS OF CPAP PT RSBI 38. HR 98 RR 17-22. PT VENT CHANGED BACK TO PREVIOUS VENT SETTINGS TO REST OVER NIGHT.
--- NOTE | 2019-04-25 23:00 | NUR ---
PT PULLED OUT R HAND PIV, PIV RESITED TO R FOREARM. MEDS GIVEN PER AUG. REASSESSMENT COMPLETE, SEE FLOWSHEET. VSS, NO SIGNS OF ACUTE DISTRESS NOTED. WILL MONITOR.
[2019-04-26] VITALS (24 sets, daily range): BP systolic 99–159; BP diastolic 55–89
--- NOTE | 2019-04-26 03:00 | NUR ---
REASSESSMENT COMPLETE, SEE FLOWSHEET. VSS, NO SIGNS OF ACUTE DISTRESS NOTED. MEDS GIVEN PER MAR. ORAL CARE COMPLETE. WILL CONTINUE TO MONITOR.
[2019-04-26 04:22] LABS: BASOPHILS 0 % (0-2); EOSINOPHILS 0 % (0-7); HEMATOCRIT 36.8 % (36.0-48.0); IMMATURE GRANULOCYTES 0.3 % (0-5); LYMPHOCYTES 7.6 % (15-50); MCH 30.8 pg (26.0-34.0); MCHC 32.6 g/dL (31.0-37.0); MCV 94.6 fL (80.0-100.0); MEAN PLATELET VOLUME 11.3 fL (7.4-10.4); MONOCYTES 2.5 % (2-11); NEUTROPHILS 89.6 % (40-80); PLATELET COUNT 248 10x3/uL (130-400); RBC 3.89 10x6/uL (4.00-5.40); RDW 15.9 % (11.5-14.5)
[2019-04-26 04:33] LABS: WBC 13.9 10x3/uL (4.8-10.8)
[2019-04-26 04:48] LABS: ALBUMIN 2.7 g/dL (3.4-5.0); ALKALINE PHOSPHATASE 79 U/L (46-116); ALT (SGPT) 35 U/L (10-68); BILIRUBIN - TOTAL 0.49 mg/dL (0.2-1.3); C-REACTIVE PROTEIN 0.6 mg/dL (0.0-0.9); CALC OSMOLALITY 297 mosm/kg (275-300); CALCIUM 7.9 mg/dL (8.5-10.1); CARBON DIOXIDE 33.6 mmol/L (21.0-32.0); CHLORIDE - SERUM 109 mmol/L (98-107); CREATININE - SERUM 0.6 mg/dL (0.6-1.3); GLUCOSE 133 mg/dL (74-106); MAGNESIUM - SERUM 2.3 mg/dL (1.8-2.4); PHOSPHOROUS 2.9 mg/dL (2.5-4.9); POTASSIUM - SERUM 3.6 mmol/L (3.5-5.1); PROTEIN - SERUM 6.3 g/dL (6.4-8.2); SODIUM 145 mmol/L (136-145); UREA NITROGEN 31 mg/dL (7-18); eGFR NON AFRICAN AMERICAN > 90 mL/min (90-120)
--- NOTE | 2019-04-26 05:00 | NUR ---
COTTRELL CARE PROVIDED. VSS, NO SIGNS OF ACUTE DISTRESS NOTED. MEDS GIVEN PER MAR.
--- NOTE | 2019-04-26 07:03 | NUR ---
REPORT RECEIVED. ASSESSMENT COMPLETE PER FLOW SHEET. VSS. NO NEW CHANGES PT RESTING COMFORTABLY WILL CONTINUE TO MONITOR
--- NOTE | 2019-04-26 09:20 | NUR ---
FAMILY AT BEDSIDE GIVEN UPDATE.
--- NOTE | 2019-04-26 11:10 | NUR ---
PT EXTUBATED AT THIS TIME. VSS. PT TOLERATING WELL. DENIES NEEDS WILLC ONTINEUT O MONITOR
--- NOTE | 2019-04-26 13:20 | NUR ---
SPEECH AT BEDSIDE GIVEN UPDATE. NEW ORDERS RECIEVEDX
--- NOTE | 2019-04-26 14:40 | MORECARE ---
CASE MANAGEMENT DISCHARGE SUMMARY PATIENT: GERMAIN ONTIVEROS UNIT: [id number] ADM DATE: 04/23/19 AGE: 59 : 64 SEX: F ROOM/BED: D.2306 AUTHOR: DANIEL,DOC PHYSICIAN: REFERRING PHYSICIAN: NATIVIDAD PIÑA DO DATE OF SERVICE: 04/26/19 Discharge Plan Patient Name: GERMAIN ONTIVEROS Facility: [facility]:[place] : 1960 Planned Disposition: Anticipated Discharge Date: Discharge Date: Expected LOS: Initial Reviewer: [email or web address] Initial Review Date: 04/26/2019 Generated: 04/26/19 3:40 pm Comments DCP- Discharge Planning Updated by [email or web address]: Colleen Bella on 04/25/19 7:[address] CM spoke with [employer] today and patient is still Medicaid pending. Awaiting income verification. CM attempted to get discharge planning assessment but patient is still on vent. CM was able to obtain some contact numbers and will attempt to contact them. CM will continue to follow and assist as needed with discharge planning / needs DCP- Discharge Planning Updated by [email or web address]: Colelen Bella on 04/23/19 11:[address] CM attempted to visit with patient regarding discharge planning/ needs. Patient currently on vent no family available. Patient is a readmission was recently discharged 04/12/19 CM will continue to follow and assist as needed with discharge planning / needs DCPIA - Discharge Planning Initial Assessment Updated by [email or web address]: Yaneth Small on 04/26/19 2:37 pm * Is the patient Alert and Oriented? Yes * PCP CAN'T REMEMBER THE NAME * Pharmacy [facility] * Preadmission Environment Home Alone * ADLs Independent * Equipment None * Other Equipment NONE * List name and contact numbers for known caregivers / representatives who currently or will assist patient after discharge: BREANA EATON [phone] * Please name any agencies selected above. NONE * Additional services required to return to the preadmission environment? No * Can the patient safely return to the preadmission environment? Yes * Has this patient been hospitalized within the prior 30 days at any hospital? Yes Last DP export: 04/25/19 7:29 Patient Name: GERMAIN ONTIVEROS Page [phone] at 1440 All edits/amendments must be made on the electronic document DICTATION DATE: 04/26/191439 CAR WHACKER: JAY 04/26/191439 RPT#: [id number] DC DATE: STATUS: ADM IN [facility] [address] [place] [address] END OF REPORT
--- NOTE | 2019-04-26 14:52 | MORECARE ---
CASE MANAGEMENT DISCHARGE SUMMARY PATIENT: GERMAIN ONTIVEROS UNIT: [id number] ADM DATE: 04/23/19 AGE: 59 : 64 SEX: F ROOM/BED: D.2308 AUTHOR: ERVIN SANCHEZ PHYSICIAN: REFERRING PHYSICIAN: NATIVIDAD PIÑA DO DATE OF SERVICE: 04/26/19 Discharge Plan Patient Name: GERMAIN ONTIVEROS Facility: [facility]:[place] : 1960 Planned Disposition: Anticipated Discharge Date: Discharge Date: Expected LOS: Initial Reviewer: [email or web address] Initial Review Date: 04/26/2019 Generated: 04/26/19 3:52 pm Comments DCP- Discharge Planning Updated by [id number]: Yaneth Small on 04/26/19 1:[address] Patient Name: GERMAIN ONTIVEROS Admission Status: ER Accout number: [id number] Admission Date: 04-23-2019 : 1960 Admission Diagnosis: Attending: NATIVIDAD PIÑA Current LOS: 3 Anticipated DC Date: Planned Disposition: Primary Insurance: MEDICAID [place] PENDING Discharge Planning Comments: PATIENT WAS JUST EXTUBATED TODAY. I MET WITH HER AND HER DAUGHTER BREANA ABOUT DC PLANNING/NEEDS. PATIENT WANTS TO DC TO HOME. I SPOKE WITH HER ABOUT HH REHAB AND EQUIPMENT. SHE DOES NOT WANT ANY SERVICES. SHE MAY NEED OXYGEN, SHE DOESN'T HAVE ANY EQUIPMENT AT HOME. SHE WANTS FOR US TO COME BACK AND TALK WITH HER ABOUT POSSIBLE HOME HEALTH CLOSER TO DC. CM WILL FOLLOW AND ASSIST. Collections Assistant: Yaneth Small DCP- Discharge Planning Updated by [email or web address]: Colleen Bella on 04/25/19 7:[address] CM spoke with [employer] today and patient is still Medicaid pending. Awaiting income verification. CM attempted to get discharge planning assessment but patient is still on vent. CM was able to obtain some contact numbers and will attempt to contact them. CM will continue to follow and assist as needed with discharge planning / needs DCP- Discharge Planning Updated by [email or web address]: Colleen Bella on 04/23/19 11:[address] CM attempted to visit with patient regarding discharge planning/ needs. Patient currently on vent no family available. Patient is a readmission was recently discharged 04/12/19 CM will continue to follow and assist as needed with discharge planning / needs DCPIA - Discharge Planning Initial Assessment Updated by [email or web address]: Yaneth Small on 04/26/19 2:37 pm * Is the patient Alert and Oriented? Yes * PCP CAN'T REMEMBER THE NAME * Pharmacy [facility] * Preadmission Environment Home Alone * ADLs Independent * Equipment None * Other Equipment NONE * List name and contact numbers for known caregivers / representatives who currently or will assist patient after discharge: BREANA EATON [phone] * Please name any agencies selected above. NONE * Additional services required to return to the preadmission environment? No * Can the patient safely return to the preadmission environment? Yes * Has this patient been hospitalized within the prior 30 days at any hospital? Yes Last DP export: 04/26/19 1:40 Patient Name: GERMAIN ONTIVEROS Page 22455 at 1452 All edits/amendments must be made on the electronic document DICTATION DATE: 04/26/191451 CHEMISTRY PROFESSOR: JAY 04/26/19 145 RPT#: [id number] DC DATE: STATUS: ADM IN [facility] [address] [place] [address] END OF REPORT
--- NOTE | 2019-04-26 15:00 | NUR ---
REASSESSMENT COMPLETE PER FLOW SHEET. VSS. NO NEW CHANGES PT RESTING COMFORTABLY WILL CONTINUE TO MONITOR
[2019-04-26 17:08] LABS: F. TULARENSIS - IGG Negative (Negative); F. TULARENSIS - IGM Negative (Negative); RMSF IGM 0.64 index (0.00-0.89)
[2019-04-26 17:08] LABS: ACID FAST SMEAR Negative (()); AFB SPECIMEN PROCESSING Concentration (())
--- NOTE | 2019-04-26 17:47 | NUR ---
FAMILY AT BEDSIDE GIVEN UDPATE.
--- NOTE | 2019-04-26 21:00 | NUR ---
PT UP IN BED EATING DINNER TRAY, NO SIGNS OF ASPIRATION OBSERVED.
--- NOTE | 2019-04-26 23:00 | NUR ---
PT RESTING IN BED, NO ACUTE DISTRESS NOTED.
[2019-04-27] VITALS (25 sets, daily range): BP systolic 87–211; BP diastolic 45–104
--- NOTE | 2019-04-27 00:57 | NUR ---
REPORT RECEIVED, PT UP IN BED, AAOX4. ASSESSMENT COMPLETED, SEE FLOWSHEET. NO ACUTE DISTRESS NOTED. LT AC PIV TO SL, RT HAND PIV INFUSING, SEE FLOWSHEET. COTTRELL IN PLACE, NO ACUTE DISTRESS NOTED. WILL CONTINUE TO MONITOR.
--- NOTE | 2019-04-27 01:00 | NUR ---
PT RESTING IN BED, NO ACUTE DSITRESS NOTED. WILL CONTINUE TO MONITOR.
--- NOTE | 2019-04-27 03:00 | NUR ---
PT UP IN BED, NO ACUTE DISTRESS NOTED.
--- NOTE | 2019-04-27 05:00 | NUR ---
PT RESTING IN BED, NO ACUTE DISTRESS NOTED. COMPLETE BATH GIVEN. WILL CONTINUE TO MONITOR.
[2019-04-27 05:54] LABS: BASOPHILS 0.1 % (0-2); EOSINOPHILS 1.3 % (0-7); HEMATOCRIT 39.1 % (36.0-48.0); HEMOGLOBIN 12.5 g/dL (12-16); IMMATURE GRANULOCYTES 0.2 % (0-5); LYMPHOCYTES 21.7 % (15-50); MCH 30.5 pg (26.0-34.0); MCV 95.4 fL (80.0-100.0); MEAN PLATELET VOLUME 11.6 fL (7.4-10.4); MONOCYTES 5.2 % (2-11); NEUTROPHILS 71.5 % (40-80); PLATELET COUNT 245 10x3/uL (130-400); RDW 15.5 % (11.5-14.5); WBC 10.8 10x3/uL (4.8-10.8)
[2019-04-27 06:26] LABS: ALBUMIN 2.8 g/dL (3.4-5.0); ALKALINE PHOSPHATASE 74 U/L (46-116); BILIRUBIN - TOTAL 0.38 mg/dL (0.2-1.3); C-REACTIVE PROTEIN 0.3 mg/dL (0.0-0.9); CALC OSMOLALITY 295 mosm/kg (275-300); CALCIUM 8.2 mg/dL (8.5-10.1); CARBON DIOXIDE 33.3 mmol/L (21.0-32.0); CHLORIDE - SERUM 109 mmol/L (98-107); CREATININE - SERUM 0.6 mg/dL (0.6-1.3); GLUCOSE 102 mg/dL (74-106); POTASSIUM - SERUM 3.7 mmol/L (3.5-5.1); PROTEIN - SERUM 6.5 g/dL (6.4-8.2); SODIUM 146 mmol/L (136-145); UREA NITROGEN 26 mg/dL (7-18); VANCOMYCIN - TROUGH 13.4 ug/mL (10.0-20.0); eGFR NON AFRICAN AMERICAN > 90 mL/min (90-120)
[2019-04-27 06:27] LABS: ALT (SGPT) 52 U/L (10-68)
--- NOTE | 2019-04-27 08:29 | NUR ---
0700 AWAKE ALERT VOICES NO C/O PAIN UP TO BEDSIDE COMODE WITHOUT ASSIST. LARGE SOFT BM NOTED
--- NOTE | 2019-04-27 11:27 | NUR ---
Nutrition follow-up: Pt extubated 04/26 Swallow eval ordered; diet advanced to regular mechanical soft, ground meat and nectar thick liquids Labs reviewed Wt: 135# RDN following.
--- NOTE | 2019-04-27 12:02 | NUR ---
1100 DR PIÑA ROUNDING ON PATIENT WITH REG DIET ORDERED
--- NOTE | 2019-04-27 14:28 | NUR ---
1300 FRIENDS AND FAMILY MEMBERS AT BEDSIDE BRINGING ICE CDREAM AND TAKEOUT LUNCH APPETITE FAIR DENIES PAIN
[2019-04-27 15:09] LABS: FUNGUS STAIN Final report (())
--- NOTE | 2019-04-27 17:42 | NUR ---
1500 SITTING UP ON BEDSIDE WATCHING TV. DENIES PAIN
--- NOTE | 2019-04-27 17:43 | NUR ---
1700 EATING DINNER. FAMILY MEMBERS AT BEDSIDE APPETITE GOOD
--- NOTE | 2019-04-27 19:30 | NUR ---
REPORT RECEIVED. INITIAL ASSESSMENT COMPLETE PT ALERT ORIENTED X 4. DENIES PAIN OR DISCOMFORT. RESP EVEN NONLABORED ON ROOM AIR O2 SAT 98% CHEST SOUNDS CLEAR. CM READING SR ALARMS ON AND AUDIBLE NO ECTOPY NOTED. BED LOW POSITION CL IN REACH PT DENIES NEEDS AT THIS TIME
--- NOTE | 2019-04-27 20:10 | NUR ---
FAMILY AT BEDSIDE FOR VISITATION
--- NOTE | 2019-04-27 20:25 | NUR ---
BED ALARM SOUNDING INTO CHECK ON PATIENT FAMILY ASSISTING TO BSC. ENCOURAGED PT TO CALL FOR NURSE TO ASSIST WITH LINES AND TUBES TO GET UP SAFELY PT VERBALIZES UNDERSTADING
--- NOTE | 2019-04-27 21:00 | NUR ---
BACK TO BED STILL VISITING WITH FAMILY.
--- NOTE | 2019-04-27 23:00 | NUR ---
REASSESSMENT MADE NO CHANGES. PT STILL AWAKE DENIES NEEDS AT THIS TIME. SHE IS READY TO GET ROOM ON THE FLOOR SO SHE CAN GET A SHOWER. CPOC CL IN REACH WILL CONTINUE TO MONITOR
[2019-04-28] VITALS (14 sets, daily range): BP systolic 93–144; BP diastolic 54–83
--- NOTE | 2019-04-28 01:00 | NUR ---
PT RESTING QUIETLY WITH EYES CLOSED VSS AT THIS TIME CPOC
--- NOTE | 2019-04-28 02:45 | NUR ---
RETANNER HERE FOR AM LAB DRAW NO DISTRESS NOTED PT DENIES NEEDS VSS CPOC
--- NOTE | 2019-04-28 03:00 | NUR ---
REASSESSMENT MADE NO CHANGES PT 0315 DOSE OF B/P MED HELD PT HAS BEEN HYPOTENSIVE SBP 90-110'S. WILL CONTINUE TO MONITOR
[2019-04-28 03:14] LABS: BASOPHILS 0 % (0-2); EOSINOPHILS 8.1 % (0-7); HEMOGLOBIN 11.6 g/dL (12-16); IMMATURE GRANULOCYTES 0.3 % (0-5); LYMPHOCYTES 34.3 % (15-50); MCH 30.4 pg (26.0-34.0); MCHC 31.4 g/dL (31.0-37.0); MCV 97.1 fL (80.0-100.0); MEAN PLATELET VOLUME 11.6 fL (7.4-10.4); MONOCYTES 6.8 % (2-11); NEUTROPHILS 50.5 % (40-80); PLATELET COUNT 228 10x3/uL (130-400); RBC 3.81 10x6/uL (4.00-5.40); RDW 15.2 % (11.5-14.5); WBC 11.7 10x3/uL (4.8-10.8)
[2019-04-28 03:44] LABS: ALBUMIN 2.4 g/dL (3.4-5.0); ALKALINE PHOSPHATASE 70 U/L (46-116); ALT (SGPT) 53 U/L (10-68); BILIRUBIN - TOTAL 0.29 mg/dL (0.2-1.3); CALC OSMOLALITY 289 mosm/kg (275-300); CALCIUM 7.8 mg/dL (8.5-10.1); CARBON DIOXIDE 31.2 mmol/L (21.0-32.0); CHLORIDE - SERUM 106 mmol/L (98-107); CREATININE - SERUM 0.5 mg/dL (0.6-1.3); GLUCOSE 95 mg/dL (74-106); POTASSIUM - SERUM 3.4 mmol/L (3.5-5.1); PROTEIN - SERUM 5.8 g/dL (6.4-8.2); SODIUM 142 mmol/L (136-145); UREA NITROGEN 31 mg/dL (7-18); eGFR NON AFRICAN AMERICAN > 90 mL/min (90-120)
--- NOTE | 2019-04-28 05:00 | NUR ---
PT RESTING QUIETLY WITH EYES CLOSED VSS CPOC ROOM AIR SATS 99% PT DENIES NEEDS AT THIS TIME
[2019-04-28 08:10] LABS: IMMUNOGLOBULIN A 356 mg/dL (87-352); IMMUNOGLOBULIN G 716 mg/dL (700-1600)
--- NOTE | 2019-04-28 10:24 | NUR ---
PT OOB TO CHAIR. AMB FULL LENGTH OF DEPT. DR MEEKS AND DR CUNNINGHAM HERE ON ROUNDS. DCD FC. PT VOIDS IN BSC.
--- NOTE | 2019-04-28 11:08 | NUR ---
1045- PT EXTUBATED TO BIPAP PS 15 AND PEEP 10 FI02 50%. RESP EASY. SPO2 97%. RESTRAINTS OFF.
--- NOTE | 2019-04-28 15:52 | NUR ---
TRANSFER PT ASSISTED WITH SHOWER.
--- NOTE | 2019-04-28 16:40 | NUR ---
PT SITTING UP IN CHAIR. VSS.
--- NOTE | 2019-04-28 18:19 | NUR ---
NEW PATIENT ICU TRANSFER VIA WC ACCOMPANIED BY ICU STAFF. PATIENT IS AWAKE, ALERT AND ORIENTED X 4. PATIENT UP WALKING IN ROOM THEN TO BS CHAIR. PATIENT HAS IV TO LT AC SL AND RT WRIST. PATIENT IS STABLE AND VSS. PATIENT DENIES ANY NEEDS OR PAIN. WILL CONTINUE WITH PLAN OF CARE. ORIENTED PATIENT TO ROOM AND CALL LIGHT. CALL LIGHT IN REACH.
--- NOTE | 2019-04-28 19:48 | NUR ---
RECEIVED REPORT, WILL ASSUME CARE OF PT, SITTING IN CHAIR, DENIES ANY NEEDS, CALL LIGHT IN REACH, WILL CONTINUE PLAN OF CARE
[2019-04-29 04:00] VITALS: BP 115/60
--- NOTE | 2019-04-29 05:53 | NUR ---
I have reviewed this patient and I concur with the Shift Assessment completed by the Licensed Practical Nurse today this shift.
[2019-04-29 08:00] VITALS: BP 130/65
--- NOTE | 2019-04-29 08:10 | NUR ---
RECIEVED PT IN ROOM AFTER SHE WAS WALKING IN HALLS. PT HAD DISCONNECTED IV PRIOR. EDUCATED ON IMPORTANCE OF LETTING NURSES HANDLE IV MAINTENANCE AND ALSO FOR ANTIBIOTIC THERAPY. PT AGREEABLE. STATES HOPING TO GO HOME TODAY. NO COMPLAINTS AT PRESENT.
--- NOTE | 2019-04-29 10:13 | NUR ---
TALKED WITH BORIS CAMARENA RELATED TO PT REQUEST REGARDING BILLING AND MEDICAID. STATES SHE WILL TRY AND SEE PT AFTER LOOKING AT CHART.
[2019-04-29 12:00] VITALS: BP 129/64
--- NOTE | 2019-04-29 14:57 | MORECARE ---
CASE MANAGEMENT DISCHARGE SUMMARY PATIENT: GERMAIN ONTIVEROS UNIT: [id number] ADM DATE: 04/23/19 AGE: 59 : 64 SEX: F ROOM/BED: D.2131 AUTHOR: ERVIN SANCHEZ PHYSICIAN: REFERRING PHYSICIAN: NATIVIDAD PIÑA DO DATE OF SERVICE: 04/29/19 Discharge Plan Patient Name: GERMAIN ONTIVEROS Facility: [facility]:[place] : 1960 Planned Disposition: Anticipated Discharge Date: Discharge Date: Expected LOS: Initial Reviewer: [email or web address] Initial Review Date: 04/26/2019 Generated: 04/29/19 3:56 pm Comments DCP- Discharge Planning Updated by [email or web address]: Yaneth Small on 04/29/19 1:[address] Patient Name: GERMAIN ONTIVEROS Admission Status: ER Accout number: [id number] Admission Date: 04-23-2019 : 1960 Admission Diagnosis: Attending: NATIVIDAD PIÑA Current LOS: 6 Anticipated DC Date: Planned Disposition: Primary Insurance: MEDICAID [place] PENDING Discharge Planning Comments: PLANS TO DC TO HOME. DR. OCHOA IS HER PCP. DOES NOT HAVE NEBULIZER, WAS USING HER FRIENDS. WILL GIVE HER A GOOD RX CARD. I WILL ALSO EMAIL ERIC BARAHONA WITH MEDICAID TO TALK TO PATIENT PER HER REQUEST. CM WILL FOLLOW AND ASSIST. Cigar Packer: Yaneth Small DCP- Discharge Planning Updated by [email or web address]: Yaneth Small on 04/26/19 2:[address] Patient Name: GERMAIN ONTIVEROS Admission Status: ER Accout number: [id number] Admission Date: 04-23-2019 : 1960 Admission Diagnosis: Attending: NATIVIDAD PIÑA Current LOS: 3 Anticipated DC Date: Planned Disposition: Primary Insurance: MEDICAID [place] PENDING Discharge Planning Comments: PATIENT WAS JUST EXTUBATED TODAY. I MET WITH HER AND HER DAUGHTER BREANA ABOUT DC PLANNING/NEEDS. PATIENT WANTS TO DC TO HOME. I SPOKE WITH HER ABOUT HH REHAB AND EQUIPMENT. SHE DOES NOT WANT ANY SERVICES. SHE MAY NEED OXYGEN, SHE DOESN'T HAVE ANY EQUIPMENT AT HOME. SHE WANTS FOR US TO COME BACK AND TALK WITH HER ABOUT POSSIBLE HOME HEALTH CLOSER TO [place]. CM WILL FOLLOW AND ASSIST. Cigar Packer: Yaneth Small DCP- Discharge Planning Updated by [email or web address]: Colleen Bella on 04/25/19 8:[address] CM spoke with [employer] today and patient is still Medicaid pending. Awaiting income verification. CM attempted to get discharge planning assessment but patient is still on vent. CM was able to obtain some contact numbers and will attempt to contact them. CM will continue to follow and assist as needed with discharge planning / needs DCP- Discharge Planning Updated by [email or web address]: Colleen Bella on 04/23/19 12:[address] CM attempted to visit with patient regarding discharge planning/ needs. Patient currently on vent no family available. Patient is a readmission was recently discharged 04/12/19 CM will continue to follow and assist as needed with discharge planning / needs DCPIA - Discharge Planning Initial Assessment Updated by [email or web address]: Yaneth Small on 04/26/19 2:37 pm * Is the patient Alert and Oriented? Yes * PCP CAN'T REMEMBER THE NAME * Pharmacy [facility] * Preadmission Environment Home Alone * ADLs Independent * Equipment None * Other Equipment NONE * List name and contact numbers for known caregivers / representatives who currently or will assist patient after discharge: BREANA EATON [phone] * Please name any agencies selected above. NONE * Additional services required to return to the preadmission environment? No * Can the patient safely return to the preadmission environment? Yes * Has this patient been hospitalized within the prior 30 days at any hospital? Yes Last DP export: 04/26/19 2:52 Patient Name: GERMAIN ONTIVEROS Page 60185 at 1457 All edits/amendments must be made on the electronic document DICTATION DATE: 04/29/191455 MANAGER MOTOR: JAY 04/29/191455 RPT#: [id number] DC DATE: STATUS: ADM IN [facility] [address] [place] [address] END OF REPORT
[2019-04-29 15:47] LABS: BASOPHILS 0.1 % (0-2); EOSINOPHILS 1.3 % (0-7); HEMATOCRIT 38.5 % (36.0-48.0); HEMOGLOBIN 12.2 g/dL (12-16); IMMATURE GRANULOCYTES 0.2 % (0-5); LYMPHOCYTES 9.6 % (15-50); MCH 30.2 pg (26.0-34.0); MCHC 31.7 g/dL (31.0-37.0); MCV 95.3 fL (80.0-100.0); MEAN PLATELET VOLUME 11.3 fL (7.4-10.4); MONOCYTES 2.1 % (2-11); NEUTROPHILS 86.7 % (40-80); PLATELET COUNT 273 10x3/uL (130-400); RBC 4.04 10x6/uL (4.00-5.40); RDW 14.9 % (11.5-14.5); WBC 10.7 10x3/uL (4.8-10.8)
[2019-04-29] MEDS ORDERED: LEVAQUIN750 MG PO (15:48)
[2019-04-29] MEDS ORDERED: NORVASC10 MG PO (15:50)
[2019-04-29] MEDS ORDERED: LASIX40 MG PO (15:50)
[2019-04-29] MEDS ORDERED: LOPRESSOR25 MG PO (15:50)
[2019-04-29] MEDS ORDERED: PREDNISONE10 MG PO (15:52)
[2019-04-29] MEDS ORDERED: IPRAT-ALBUT 0.5-3 ML UPD (15:53)
[2019-04-29 15:56] LABS: CALC OSMOLALITY 285 mosm/kg (275-300); CALCIUM 7.7 mg/dL (8.5-10.1); CHLORIDE - SERUM 104 mmol/L (98-107); CREATININE - SERUM 0.6 mg/dL (0.6-1.3); GLUCOSE 124 mg/dL (74-106); SODIUM 141 mmol/L (136-145); UREA NITROGEN 24 mg/dL (7-18); eGFR NON AFRICAN AMERICAN > 90 mL/min (90-120)
[2019-04-29 16:00] VITALS: BP 96/75
--- NOTE | 2019-04-29 16:30 | MORECARE ---
CASE MANAGEMENT DISCHARGE SUMMARY PATIENT: GERMAIN ONTIVEROS UNIT: [id number] ADM DATE: 04/23/19 AGE: 59 : 64 SEX: F ROOM/BED: D.2131 AUTHOR: ERVIN SANCHEZ PHYSICIAN: REFERRING PHYSICIAN: NATIVIDAD PIÑA DO DATE OF SERVICE: 04/29/19 Discharge Plan Patient Name: GERMAIN ONTIVEROS Facility: [facility]:[place] : 1960 Planned Disposition: Anticipated Discharge Date: Discharge Date: Expected LOS: Initial Reviewer: [email or web address] Initial Review Date: 04/26/2019 Generated: 04/29/19 5:29 pm Comments DCP- Discharge Planning Updated by [email or web address]: Yaneth Small on 04/29/19 3:[address] Patient Name: GERMAIN ONTIVEROS Admission Status: ER Accout number: [id number] Admission Date: 04-23-2019 : 1960 Admission Diagnosis: Attending: NATIVIDAD PIÑA Current LOS: 6 Anticipated DC Date: Planned Disposition: Primary Insurance: MEDICAID [place] PENDING Discharge Planning Comments: PLANS TO DC TO HOME. DR. OCHOA IS HER PCP. DOES NOT HAVE NEBULIZER, WAS USING HER FRIENDS. CM WILL GIVE HER A GOOD RX CARD. I WILL ALSO EMAIL ERIC BARAHONA WITH MEDICAID TO TALK TO PATIENT PER HER REQUEST. CM WILL FOLLOW AND ASSIST. Billet Bed Operator: Yaneth Small Appended by Yaneth Small on 04/29/2019 16:29 LAUNCH MANAGER: GAVE PATIENT INFO TO [facility] FOR HELP WITH NEBS AND OTHER THINGS. ALSO GAVE HER A GOOD RX CARD. PATIENT PLANS TO DC TO HOME TODAY. DCP- Discharge Planning Updated by [id number]: Yaneth Small on 04/26/19 2:[address] Patient Name: GERMAIN ONTIVEROS Admission Status: ER Accout number: [id number] Admission Date: 04-23-2019 : 1960 Admission Diagnosis: Attending: NATIVIDAD PIÑA Current LOS: 3 Anticipated DC Date: Planned Disposition: Primary Insurance: MEDICAID [place] PENDING Discharge Planning Comments: PATIENT WAS JUST EXTUBATED TODAY. I MET WITH HER AND HER DAUGHTER BREANA ABOUT DC PLANNING/NEEDS. PATIENT WANTS TO DC TO HOME. I SPOKE WITH HER ABOUT HH REHAB AND EQUIPMENT. SHE DOES NOT WANT ANY SERVICES. SHE MAY NEED OXYGEN, SHE DOESN'T HAVE ANY EQUIPMENT AT HOME. SHE WANTS FOR US TO COME BACK AND TALK WITH HER ABOUT POSSIBLE HOME HEALTH CLOSER TO DC. CM WILL FOLLOW AND ASSIST. Billet Bed Operator: Yaneth Small DCP- Discharge Planning Updated by [email or web address]: Colleen Bella on 04/25/19 8:[address] CM spoke with [employer] today and patient is still Medicaid pending. Awaiting income verification. CM attempted to get discharge planning assessment but patient is still on vent. CM was able to obtain some contact numbers and will attempt to contact them. CM will continue to follow and assist as needed with discharge planning / needs DCP- Discharge Planning Updated by [email or web address]: Colleen Bella on 04/23/19 12:[address] CM attempted to visit with patient regarding discharge planning/ needs. Patient currently on vent no family available. Patient is a readmission was recently discharged 04/12/19 CM will continue to follow and assist as needed with discharge planning / needs DCPIA - Discharge Planning Initial Assessment Updated by [email or web address]: Yanethslime Small on 04/26/19 2:37 pm * Is the patient Alert and Oriented? Yes * PCP CAN'T REMEMBER THE NAME * Pharmacy [facility] * Preadmission Environment Home Alone * ADLs Independent * Equipment None * Other Equipment NONE * List name and contact numbers for known caregivers / representatives who currently or will assist patient after discharge: DAUGHTER, BREANA [phone] * Please name any agencies selected above. NONE * Additional services required to return to the preadmission environment? No * Can the patient safely return to the preadmission environment? Yes * Has this patient been hospitalized within the prior 30 days at any hospital? Yes Last DP export: 04/29/19 1:57 p Patient Name: GERMAIN ONTIVEROS Page 65787 at 1630 All edits/amendments must be made on the electronic document DICTATION DATE: 04/29/191628 RIVETER AUTOMOBILE BRAKES: JAY 04/29/191628 RPT#: [id number] DC DATE: STATUS: ADM IN [facility] [address] [facility] [place] [address] END OF REPORT
--- NOTE | 2019-04-29 17:07 | NUR ---
PT DISCHARGE INSTRUCTIONS REVIEWED, IV DC'D, EDUCATION GIVEN. PT IS WAITING ON RIDE.
--- NOTE | 2019-04-29 17:09 | MORECARE ---
CASE MANAGEMENT DISCHARGE SUMMARY PATIENT: GERMAIN ONTIVEROS UNIT: [id number] ADM DATE: 04/23/19 AGE: 59 : 64 SEX: F ROOM/BED: D.0419 AUTHOR: ERVIN SANCHEZ PHYSICIAN: REFERRING PHYSICIAN: NATIVIDAD PIÑA DO DATE OF SERVICE: 04/29/19 Discharge Plan Patient Name: GERMAIN ONTIVEROS Facility: [facility]:[place] : 1960 Planned Disposition: Anticipated Discharge Date: Discharge Date: Expected LOS: Initial Reviewer: [email or web address] Initial Review Date: 04/26/2019 Generated: 04/29/19 6:09 pm Comments DCP- Discharge Planning Updated by [id number]: Yaneth Small on 04/29/19 4:[address] Patient Name: GERMAIN ONTIVEROS Admission Status: ER Accout number: [id number] Admission Date: 04-23-2019 : 1960 Admission Diagnosis: Attending: NATIVIDAD PIÑA Current LOS: 6 Anticipated DC Date: Planned Disposition: Primary Insurance: MEDICAID [place] PENDING Discharge Planning Comments: PLANS TO DC TO HOME. DR. OCHOA IS HER PCP. DOES NOT HAVE NEBULIZER, WAS USING HER FRIENDS. CM WILL GIVE HER A GOOD RX CARD. I WILL ALSO EMAIL ERIC MCDANIELSHAM WITH MEDICAID TO TALK TO PATIENT PER HER REQUEST. CM WILL FOLLOW AND ASSIST. Eeg Technologist: Yaneth Small Appended by Yaneth Small on 04/29/2019 16:29 SUPERVISOR TELEPHONE ANSWERING SERVICE: GAVE PATIENT INFO TO [facility] FOR HELP WITH NEBS AND OTHER THINGS. ALSO GAVE HER A GOOD RX CARD. PATIENT PLANS TO DC TO HOME TODAY. Appended by Yaneth Small on 04/29/2019 17:05 SUPERVISOR TELEPHONE ANSWERING SERVICE: FAXED DOCUMENTS TO [facility], THEY ARE TRYING TO GET HER A NEBULIZER. I WILL NOTIFY PATIENT. DCP- Discharge Planning Updated by [email or web address]: Yaneth Small on 04/26/19 2:[address] Patient Name: GERMAIN ONTIVEROS Admission Status: ER Accout number: [id number] Admission Date: 04-23-2019 : 1960 Admission Diagnosis: Attending: NATIVIDAD PIÑA Current LOS: 3 Anticipated DC Date: Planned Disposition: Primary Insurance: MEDICAID [place] PENDING Discharge Planning Comments: PATIENT WAS JUST EXTUBATED TODAY. I MET WITH HER AND HER DAUGHTER BREANA ABOUT DC PLANNING/NEEDS. PATIENT WANTS TO DC TO HOME. I SPOKE WITH HER ABOUT HH REHAB AND EQUIPMENT. SHE DOES NOT WANT ANY SERVICES. SHE MAY NEED OXYGEN, SHE DOESN'T HAVE ANY EQUIPMENT AT HOME. SHE WANTS FOR US TO COME BACK AND TALK WITH HER ABOUT POSSIBLE HOME HEALTH CLOSER TO DC. CM WILL FOLLOW AND ASSIST. Eeg Technologist: Yaneth Small DCP- Discharge Planning Updated by [email or web address]: Colleen Bella on 04/25/19 8:[address] CM spoke with [employer] today and patient is still Medicaid pending. Awaiting income verification. CM attempted to get discharge planning assessment but patient is still on vent. CM was able to obtain some contact numbers and will attempt to contact them. CM will continue to follow and assist as needed with discharge planning / needs DCP- Discharge Planning Updated by [email or web address]: Colleen Bella on 04/23/19 12:[address] CM attempted to visit with patient regarding discharge planning/ needs. Patient currently on vent no family available. Patient is a readmission was recently discharged 04/12/19 CM will continue to follow and assist as needed with discharge planning / needs DCPIA - Discharge Planning Initial Assessment Updated by [email or web address]: Yaneth Small on 04/26/19 2:37 pm * Is the patient Alert and Oriented? Yes * PCP CAN'T REMEMBER THE NAME * [facility] * Preadmission Environment Home Alone * ADLs Independent * Equipment None * Other Equipment NONE * List name and contact numbers for known caregivers / representatives who currently or will assist patient after discharge: BREANA EATON [phone] * Please name any agencies selected above. NONE * Additional services required to return to the preadmission environment? No * Can the patient safely return to the preadmission environment? Yes * Has this patient been hospitalized within the prior 30 days at any hospital? Yes External Providers External Provider: Low Next Contact Date: Service Request Date: Service Type: Resolution: Reviewer: Comments: Last DP export: 04/29/19 3:30 p Patient Name: GERMAIN ONTIVEROS Page [phone] at 1709 All edits/amendments must be made on the electronic document DICTATION DATE: 04/29/191708 FLOATMAN: JAY 04/29/191708 RPT#: [id number] DC DATE: STATUS: ADM IN [facility] [address] [place] [address] END OF REPORT
--- NOTE | 2019-04-29 17:45 | NUR ---
RIDE ARRIVES. ESCORT TO RIDE VIA WHEELCHAIR. REMAINS FREE FROM INJURY.
--- NOTE | 2019-04-30 09:11 | MORECARE ---
CASE MANAGEMENT DISCHARGE SUMMARY PATIENT: GERMAIN ONTIVEROS UNIT: [id number] ADM DATE: 04/23/19 AGE: 59 : 64 SEX: F ROOM/BED: D.2721 AUTHOR: ERVIN SANCHEZ PHYSICIAN: REFERRING PHYSICIAN: NATIVIDAD PIÑA DO DATE OF SERVICE: 04/30/19 Discharge Plan Patient Name: GERMAIN ONTIVEROS Facility: [facility]:[place] : 1960 Planned Disposition: Home Anticipated Discharge Date: 04/29/19 Discharge Date: 04/29/2019 Expected LOS: 6 Initial Reviewer: [email or web address] Initial Review Date: 04/26/2019 Generated: 04/30/19 10:10 am Comments DCP- Discharge Planning Updated by [email or web address]: Yaneth Small on 04/29/19 4:[address] Patient Name: GERMAIN ONTIVEROS Admission Status: ER Accout number: [id number] Admission Date: 04-23-2019 : 1960 Admission Diagnosis: Attending: NATIVIDAD PIÑA Current LOS: 6 Anticipated DC Date: Planned Disposition: Primary Insurance: MEDICAID [place] PENDING Discharge Planning Comments: PLANS TO DC TO HOME. DR. OCHOA IS HER PCP. DOES NOT HAVE NEBULIZER, WAS USING HER FRIENDS. CM WILL GIVE HER A GOOD RX CARD. I WILL ALSO EMAIL ERICKRYSTAL MCDANIELSHAM WITH MEDICAID TO TALK TO PATIENT PER HER REQUEST. WILL FOLLOW AND ASSIST. Formula Technician: Yaneth Small Appended by Yaneth Small on 04/29/2019 16:29 STEEPING PRESS OPERATOR: GAVE PATIENT INFO TO [facility] FOR HELP WITH NEBS AND OTHER THINGS. ALSO GAVE HER A GOOD RX CARD. PATIENT PLANS TO DC TO HOME TODAY. Appended by Yaneth Small on 04/29/2019 17:05 STEEPING PRESS OPERATOR: FAXED DOCUMENTS TO [facility], THEY ARE TRYING TO GET HER A NEBULIZER. I WILL NOTIFY PATIENT. DCP- Discharge Planning Updated by [id number]: Yaneth Small on 04/26/19 2:[address] Patient Name: GERMAIN ONTIVEROS Admission Status: ER Accout number: [id number] Admission Date: 04-23-2019 : 1960 Admission Diagnosis: Attending: NATIVIDAD PIÑA Current LOS: 3 Anticipated DC Date: Planned Disposition: Primary Insurance: MEDICAID [place] PENDING Discharge Planning Comments: PATIENT WAS JUST EXTUBATED TODAY. I MET WITH HER AND HER DAUGHTER BREANA ABOUT DC PLANNING/NEEDS. PATIENT WANTS TO DC TO HOME. I SPOKE WITH HER ABOUT HH REHAB AND EQUIPMENT. SHE DOES NOT WANT ANY SERVICES. SHE MAY NEED OXYGEN, SHE DOESN'T HAVE ANY EQUIPMENT AT HOME. SHE WANTS FOR US TO COME BACK AND TALK WITH HER ABOUT POSSIBLE HOME HEALTH CLOSER TO DC. CM WILL FOLLOW AND ASSIST. Formula Technician: Yaneth Staci DCP- Discharge Planning Updated by [email or web address]: Colleen Bella on 04/25/19 8:[address] CM spoke with [employer] today and patient is still Medicaid pending. Awaiting income verification. CM attempted to get discharge planning assessment but patient is still on vent. CM was able to obtain some contact numbers and will attempt to contact them. CM will continue to follow and assist as needed with discharge planning / needs DCP- Discharge Planning Updated by [email or web address]: Colleen Bella on 04/23/19 12:[address] CM attempted to visit with patient regarding discharge planning/ needs. Patient currently on vent no family available. Patient is a readmission was recently discharged 04/12/19 CM will continue to follow and assist as needed with discharge planning / needs DCPIA - Discharge Planning Initial Assessment Updated by [email or web address]: Yaneth Small on 04/26/19 2:37 pm * Is the patient Alert and Oriented? Yes * PCP CAN'T REMEMBER THE NAME * [facility] * Preadmission Environment Home Alone * ADLs Independent * Equipment None * Other Equipment NONE * List name and contact numbers for known caregivers / representatives who currently or will assist patient after discharge: DAUGHTERBREANA [phone] * Please name any agencies selected above. NONE * Additional services required to return to the preadmission environment? No * Can the patient safely return to the preadmission environment? Yes * Has this patient been hospitalized within the prior 30 days at any hospital? Yes Last DP export: 04/29/19 4:09 p Patient Name: GERMAIN ONTIVEROS Page 37598 at 0911 All edits/amendments must be made on the electronic document DICTATION DATE: 04/30/19909 GENERAL WAREHOUSE ASSOCIATE: JAY 04/30/19909 RPT#: [id number] DC DATE:04/29/19 STATUS: DIS IN [facility] [address] [place] [address] END OF REPORT
[2019-04-30 18:08] LABS: IMMUNOGLOBULIN E 655 IU/mL (6-495)
[2019-05-01 06:09] LABS: IGG SUBCLASS 1 454 mg/dL (248-810); IGG SUBCLASS 2 147 mg/dL (130-555); IGG SUBCLASS 3 49 mg/dL (15-102); IGG SUBCLASS 4 15 mg/dL (2-96); IGGS - IGG SERUM 727 mg/dL (700-1600)
[2019-05-04 13:10] LABS: FUNGUS CULTURE RESULT 1 Candida dubliniensis (())
[2019-05-30 12:09] LABS: FUNGUS MYCOLOGY CULTURE Final report (())
== END 2019-04-29 17:45 | disposition home or self-care (01) | DRG 208 ==
LOC: D.ER 01:00 → D.ICU 03:20 → D.M2 04-28 17:57
PROVIDERS: Emergency Medicine; Family Medicine; Internal Medicine Nephrology; Internal Medicine Pulmonary Disease; ADMIT Family Medicine; ATTEND Family Medicine
PROC: 5A1945Z Respiratory Ventilation, 24-96 Consecutive Hours (ICD-10-PCS; principal; 2019-04-23)
PROC: 0BH17EZ Insertion of Endotracheal Airway into Trachea, Via Natural or Artificial Opening (ICD-10-PCS; 2019-04-23)
PROC: 0B9B8ZZ Drainage of Left Lower Lobe Bronchus, Via Natural or Artificial Opening Endoscopic (ICD-10-PCS; 2019-04-25)
PROC: 0B968ZZ Drainage of Right Lower Lobe Bronchus, Via Natural or Artificial Opening Endoscopic (ICD-10-PCS; 2019-04-25)
DX: J96.01 Acute respiratory failure with hypoxia (principal); I50.31 Acute diastolic (congestive) heart failure; J18.9 Pneumonia, unspecified organism; F17.203 Nicotine dependence unspecified, with withdrawal; J44.1 Chronic obstructive pulmonary disease with (acute) exacerbation; I13.0 Hypertensive heart and chronic kidney disease with heart failure and stage 1 through stage 4 chronic kidney disease, or unspecified chronic kidney disease; N17.9 Acute kidney failure, unspecified; I27.20 Pulmonary hypertension, unspecified; Y95 Nosocomial condition; J96.02 Acute respiratory failure with hypercapnia; N18.9 Chronic kidney disease, unspecified; I34.0 Nonrheumatic mitral (valve) insufficiency; Z91.14 Patient's other noncompliance with medication regimen